=== PATIENT | male | born 1970 | race Caucasian/White ===

== ENCOUNTER → 2017-10-12 | Outpatient (CLI) | payer BC ==
--- NOTE | 2017-10-13 19:06 | CT ---
"EXAMINATION TYPE: CT facial bones w con, CT soft tissue neck w con DATE OF EXAM: 10/12/2017 COMPARISON: None HISTORY: Right side facial swelling and pain after injury. CT DLP: 1316.2 (accession [id number]), 1652.6 (accession [id number]) mGycm Automated exposure control for dose reduction was used. CONTRAST: CT scan of the facial bones and neck is performed without and with IV Contrast, patient injected with 100ml mL of Isovue M300. TECHNIQUE: CT scan of the sinuses is performed without contrast, axial images are obtained, coronal r eformatted images are also reviewed. FINDINGS: There is a foreign body located within the deep soft tissues of the right neck just inferio r to the submandibular gland and abutting the inferior margin of the submandibular gland with surroun ding small amount of fluid and extensive phlegmonous changes. This creates inflammatory fat stranding extending from the level of the inferior right mandible and submandibular glands to the level of the upper thyroid cartilage. The foreign body is located at the level of the high right hyoid. The surro unding phlegmonous changes measure approximately 2.7 x 2.2 cm with a foreign bodies measuring 1.8 cm. This is unlikely to represent surgical drain and does not extend to the skin surface. Overlying entr y site is seen more cranial with subcutaneous edema. There is thickening of the platysma muscle and s urrounding prominent submental lymph nodes bilaterally. Larger on the left measuring 9 mm in short ax is. The foreign body is seen anterior and extending deep to the right sternocleidomastoid. Ostiomeatal complexes are patent. Mild ethmoid mucosal thickening is seen. There is rightward nasal s eptal deviation and a small 2 mm rightward nasal septal spur. Small nonobstructive [place] cells measu red 3 mm on the right and 5 mm on the left. No significant nasal turbinate hypertrophy is seen. No ev idence of facial bone fracture. Minimal atelectasis is seen within the visualized lungs with left sided solitary bleb. Osseous struct ures are grossly intact. Supraglottic and infraglottic airway are patent. True and false focal cords are unremarkable. Vallecula and piriform sinuses are symmetric. [place] tonsils are unremarkable as are the parotid glands. IMPRESSION: Foreign body located within the deep soft tissues of the right neck abutting the inferior margin of t he submandibular gland and seen anterior to the right sternocleidomastoid extending deep to the murillo ocleidomastoid at the level of the hyoid with surrounding scant amount of fluid and extensive phlegmo nous changes extending cranially to the skin surface at the site of entry. There is surrounding adeno rom. A Yellow level critical message alert has been initiated for Jenn Gray DO via the [employer] 36 0 | Critical Results System on 10/13/2017 7:03 PM. This message alert has been sent to Jenn Gray DO via the preferences provided by the clinician for the receipt of Radiology Critical Findings. [facility] ID [id number]."
== END ==
LOC: RADCTMAIN 18:04
PROVIDERS: ATTEND Family Medicine
DX: R59.9 Enlarged lymph nodes, unspecified (principal)
CPT/HCPCS: 70487; 70491; Q9967